=== PATIENT | male | born 1990 | race Caucasian/White ===

== ENCOUNTER 2021-04-17 06:11 | Inpatient (IN) | payer MEDICAID, SELFPAY ==
[~2021-04-17] VITALS: Ht 172.7 cm; Wt 98.9 kg
[2021-04-17 06:20] VITALS: BP 125/80
--- NOTE | 2021-04-17 06:20 | NUR ---
to bed ambulatory
--- NOTE | 2021-04-17 06:35 | NUR ---
RECEIVED PT IN BED 8 WITH C/O ABDOMINAL PAIN SINCE YESTERDAY. "I HAVE HAD A LUMP IN MY STOMACH FOR OVER A YEAR". DENIES VOMITING AND DIARRHEA
--- NOTE | 2021-04-17 06:36 | NUR ---
DR. PATRICK AT BEDSIDE FOR EXAM
[2021-04-17] MEDS ORDERED: MORPHINE SULFATE 4 MG/ML SYR IVP ONE ×2 (06:45→09:35)
[2021-04-17] MEDS ORDERED: ONDANSETRON 4 MG/2 ML VIAL IVP ONE (06:45)
--- NOTE | 2021-04-17 06:50 | NUR ---
SL ESTABLISHED. LABS DRAWN
--- NOTE | 2021-04-17 06:54 | NUR ---
TO CT VIA W/C
--- NOTE | 2021-04-17 07:00 | NUR ---
RETURNED FROM CT
--- NOTE | 2021-04-17 07:01 | NUR ---
PT IS MEDICAL ON-CALL PER ER ADMISSIONS TO POSSIBLY ADMIT PT
--- NOTE | 2021-04-17 07:23 | NUR ---
REPORT RECEIEVED FROM LEONA MARTINEZ FOR TRANSFER OF CARE
--- NOTE | 2021-04-17 07:25 | NUR ---
HALINA MELVIN COLLECTED AND WALKED OVER TO LAB BY POLICY DIRECTOR EMT
[2021-04-17 07:31] LABS: BASOPHILS # (AUTO) 0.1 K/uL (0.00-0.22); BASOPHILS % (AUTO) 0.8 % (0.0-2.0); EOSINOPHILS # (AUTO) 0.2 K/uL (0-0.4); EOSINOPHILS % (AUTO) 2.4 % (0.0-4.0); HEMATOCRIT 41.6 % (36-52); HEMOGLOBIN 14.3 g/dL (12.0-18.0); LYMPHOCYTES # (AUTO) 2.6 K/uL (2.0-11.5); LYMPHOCYTES % (AUTO) 34.2 % (20.5-51.1); MEAN CORPUSCULAR HEMOGLOBIN 29 pg (27-31); MEAN CORPUSCULAR HGB CONC 35 g/dL (33-37); MONOCYTES # (AUTO) 0.5 K/uL (0.8-1.0); MONOCYTES % (AUTO) 6.2 % (1.7-9.3); NEUTROPHILS # (AUTO) 4.3 K/uL (1.8-7.7); NEUTROPHILS % (AUTO) 56.4 % (42.2-75.2); PLATELET COUNT (AUTO) 228 K/uL (140-450); RED BLOOD CELL COUNT(AUTO) 5.01 MIL/uL (4.20-6.10); RED CELL DISTRIBUTION WIDTH 13.7 % (11.6-13.7); WHITE BLOOD COUNT (AUTO) 7.6 K/uL (4.8-10.8)
[2021-04-17 07:34] LABS: ALBUMIN 3.8 g/dL (3.4-5.0); ANION GAP 13.8 (8-16); CARBON DIOXIDE 26.3 mmol/L (21-32); CREATININE 0.7 mg/dL (0.6-1.3); POTASSIUM 4.1 mmol/L (3.5-5.1); TOTAL BILIRUBIN 0.2 mg/dL (0.0-1.0)
--- NOTE | 2021-04-17 07:34 | NUR ---
30Y MALE BIB SELF FROM HOME DUE TO ABDOMINAL PAIN X2 DAYS. PER PATIENT "HE HAS HAD THE HERNIA X1 YEAR AND X2 DAYS AGO HE STARTED TO EXPERINCE ABDOMINAL PAIN." PT ALSO STATED "THE HERNINA WAS SOFT, BUT NOW HAS BECOME RIGID." ABOUT GOLF SIZE LUMP NOTED ON PATIENT UPPER MID ABDOMEN. ABDOMEN IS TENDER TO TOUCH. PT +N/-V. PT DENIES ANY CHEST PAIN, SOB, FEVER/CHILLS. PT STATED HE NEEDS TO LAY FLAT TO PREVENT ANY PAIN. SKIN DRY AND INTACT. PT CURRENTLY A&OX4. PMH: HERNIA ALLERGIES: PENICILLINS
--- NOTE | 2021-04-17 08:13 | NUR ---
Patient appears to be resting comfortably in bed. Vital Signs within normal limits. Respirations even and unlabored.
--- NOTE | 2021-04-17 08:42 | NUR ---
pt ambulated to restroom
--- NOTE | 2021-04-17 08:44 | NUR ---
PT AMBULATED TO ROOM 8 FROM RESTROOM
[2021-04-17] MEDS ORDERED: ACET-10509 PO (08:59)
[2021-04-17] MEDS ORDERED: ZOLPIDEM 5 MG TAB PO PRN (09:40)
[2021-04-17] MEDS ORDERED: SODIUM PHOS / POTASSIUM PHOS 1 PKT PDR PO PRN (09:40)
[2021-04-17] MEDS ORDERED: HYDROcodone/APAP 5/325 MG 1 TAB TAB PO PRN ×2 (09:40→17:50)
[2021-04-17] MEDS ORDERED: LORazepam 2 MG/ML VIAL IM/IVP PRN (09:40)
[2021-04-17] MEDS ORDERED: ONDANSETRON 4 MG/2 ML VIAL IVP PRN ×2 (09:40→16:05)
[2021-04-17] MEDS ORDERED: DOCUSATE SODIUM 100 MG GELCAP PO PRN (09:40)
[2021-04-17] MEDS ORDERED: ACETAMINOPHEN 325 MG TAB PO PRN (09:40)
[2021-04-17] MEDS ORDERED: MORPHINE SULFATE 2 MG/ML SYR IVP PRN (09:40)
[2021-04-17] MEDS ORDERED: MAG SULF 2000 MG/WATER PREMIX 50 ML IV PRN (09:40)
[2021-04-17] MEDS ORDERED: POTASSIUM CHLORIDE 10 MEQ TABER PO PRN (09:40)
--- NOTE | 2021-04-17 09:58 | NUR ---
Patient will be admitted to care of DR. GAONA. Admited to TELE. Will go to room 107B. Belongings list completed. Report to LEONA RODGERS.
--- NOTE | 2021-04-17 10:00 | NUR ---
ADMITTED PT FROM ED VIA GURNEY. PT IS ALERT, A/O X 4. ON ROOM AIR. BREATHING SYMMETRICAL. DENIES PAIN AT THIS TIME. NOTED WITH GOLF SIZE HERNIA ON UPPER MID ABDOMEN, SKIN INTACT. WITH LAC 18G. CALL LIGHT WITHIN REACH. ALL SAFETY MEASURES IN PLACE. WILL CONTINUE TO MONITOR.
[2021-04-17] MEDS: DEXT 5% / NACL 0.45% 1,000 ML IV SCH ×2 (10:32→23:24)
[2021-04-17 12:00] VITALS: BP 105/60
--- NOTE | 2021-04-17 12:30 | NUR ---
PT ASLEEP IN BED. BREATHING SYMMETRICAL. FLACC 0. CALL LIGHT WITHIN REACH. ALL SAFETY MEASURES IN PLACE. WILL CONTINUE TO MONITOR.
[2021-04-17 14:43] LABS: APPEARANCE,URINE CLEAR (CLEAR); BILIRUBIN,URINE NEGATIVE (NEGATIVE); BLOOD, URINE NEGATIVE (NEGATIVE); COLOR,URINE YELLOW (YELLOW); LEUKOCYTE ESTERASE ,URINE NEGATIVE (NEGATIVE); NITRITE, URINE NEGATIVE (NEGATIVE); PH,URINE 5.5 (5.0-9.0); UGLUCOSE NEGATIVE (NEGATIVE)
--- NOTE | 2021-04-17 15:08 | NUR ---
PT AWAKE IN BED. RESPIRATION EVEN AND UNLABORED. C/O MILD PAIN ON MID ABDOMEN, REFUSES PAIN MEDICATION AT THIS TIME. ENCOURAGED PT TO CALL IF PAIN BECOMES UNBEARABLE. CALL LIGHT PLACED WITHIN REACH. WILL CONTINUE TO MONITOR.
[2021-04-17 15:13] LABS: BARBITURATE, URINE NEGATIVE ng/ml (NEG <=200)
[2021-04-17 15:14] LABS: BENZODIAZEPINE, URINE NEGATIVE ng/mL (NEG <=200); CANNABINOID, URINE NEGATIVE ng/mL (NEG <=50); COCAINE, URINE NEGATIVE ng/mL (NEG <=300); OPIATE, URINE POSITIVE ng/mL (NEG <=2000); PHENCYCLIDINE SCREEN,URINE NEGATIVE ng/mL (NEG <=25)
[2021-04-17] MEDS ORDERED: BUPIVACAINE-MPF/EPI 0.25% 10 ML VIAL INJ ONE (15:45)
[2021-04-17] MEDS ORDERED: ceFAZolin 1,000 MG VIAL ONE ×2 (15:45→16:41)
[2021-04-17] MEDS ORDERED: LIDOCAINE 1% 500 MG/50 ML VIAL ONE (15:45)
[2021-04-17] MEDS ORDERED: PROPOFOL 200 MG/20 ML VIAL IV ONE (15:53)
[2021-04-17] MEDS ORDERED: fentaNYL citrate 0.05 MG/ML VIAL ONE (15:54)
[2021-04-17] MEDS ORDERED: SUGAMMADEX SODIUM 200 MG/2 ML VIAL IV ONE (15:58)
[2021-04-17] MEDS ORDERED: LACTATED RINGERS 1,000 ML IV SCH (16:05)
[2021-04-17] MEDS ORDERED: HYDROmorphone 1 MG/ML AMP IVP PRN ×2 (16:05→17:50)
[2021-04-17] MEDS ORDERED: MEPERIDINE 25 MG/ML SYR IVP PRN (16:05)
--- NOTE | 2021-04-17 16:11 | NUR ---
PT TAKEN TO OR BY 2 DISTRIBUTION CLERK, PT IS ALERT/ORIENTED X4. BREATHING SYMMETRICAL. IN STABLE CONDITION.
[2021-04-17] MEDS ORDERED: ROCURONIUM 50 MG/5 ML VIAL IV ONE (16:30)
[2021-04-17] MEDS ORDERED: SEVOFLURANE 250 ML BTL INH ONE (16:30)
[2021-04-17] MEDS ORDERED: LIDOCAINE 2% 100 MG/5 ML SYR IVP ONE (16:30)
[2021-04-17] MEDS ORDERED: ONDANSETRON 4 MG/2 ML VIAL ONE (16:30)
[2021-04-17] MEDS ORDERED: DEXAMETHASONE 4 MG/ML VIAL ONE (16:30)
--- NOTE | 2021-04-17 18:10 | NUR ---
RECEIVED CALL FROM AFTER HOURS PHARMACY SPOKE WITH KRISTYN REGARDING DUPLICATE ORDERS FOR NORCO, COLACE AND DILAUDID. MESSAGED DR ULRICH, AWAITING ORDERS. Addendum: 04/17/21 at 1832 by Patricia Mckinnon RN ORDERS CLARIFIED AND RELAYED TO KRISTYN
--- NOTE | 2021-04-17 18:36 | NUR ---
PT BACK FROM OR, S/P HERNIA REPAIR. ABDOMINAL INCISION WITH DERMABOND, NO ACTIVE BLEEDING NOTED. PT RESPONSIVE. RESPIRATION EVEN AND UNLABORED. WILL CONTINUE TO MONITOR.
--- NOTE | 2021-04-17 18:59 | NUR ---
PROVIDED PT WITH IS. PT EDUCATED ON USE AND NEED FOR IS. PT VERBALIZED UNDERSTANDING AND DEMONSTRATED PROPER USE. FAMILY AT BEDSIDE. NO S/S OF DISTRESS. CALL LIGHT IN REACH. ALL SAFETY MEASURES IN PLACE
[2021-04-17 20:00] VITALS: BP 117/66
[2021-04-18 04:00] VITALS: BP 127/67
--- NOTE | 2021-04-18 06:56 | NUR ---
PATIENT HAS BEEN SCREENED AND CATEGORIZED LOW NUTRITION RISK. PATIENT WILL BE SEEN WITHIN 7 DAYS OF ADMISSION. 04/24/21 MARIE BELL MS, RDN
[2021-04-18 07:22] LABS: BASOPHILS % (AUTO) 0.1 % (0.0-2.0); HEMATOCRIT 41.7 % (36-52); HEMOGLOBIN 14.1 g/dL (12.0-18.0); LYMPHOCYTES # (AUTO) 0.9 K/uL (2.0-11.5); MEAN CORPUSCULAR HEMOGLOBIN 28 pg (27-31); MEAN CORPUSCULAR HGB CONC 34 g/dL (33-37); MEAN CORPUSCULAR VOLUME 82.7 fL (80-94); MONOCYTES # (AUTO) 0.5 K/uL (0.8-1.0); NEUTROPHILS # (AUTO) 9.9 K/uL (1.8-7.7); PLATELET COUNT (AUTO) 291 K/uL (140-450); RED BLOOD CELL COUNT(AUTO) 5.04 MIL/uL (4.20-6.10); RED CELL DISTRIBUTION WIDTH 13.6 % (11.6-13.7); WHITE BLOOD COUNT (AUTO) 11.3 K/uL (4.8-10.8)
[2021-04-18 07:26] LABS: ALBUMIN 3.5 g/dL (3.4-5.0); ANION GAP 13.2 (8-16); CARBON DIOXIDE 25.9 mmol/L (21-32); CREATININE 0.7 mg/dL (0.6-1.3); POTASSIUM 4.1 mmol/L (3.5-5.1); TOTAL BILIRUBIN 0.2 mg/dL (0.0-1.0)
--- NOTE | 2021-04-18 07:40 | NUR ---
RECEIVED REPORT FROM GEOTECHNICAL OPERATING ENGINEER NURSE, PT STABLE. NO S/S OF DISTRESS. PT CLEARED BY DR. ULRICH FOR DC TODAY. WILL NOTE DC INSTRUCTIONS PER SERG IN DC ORDER. CALL LIGHT IN REACH. ALL SAFETY MEASURES IN PLACE
[2021-04-18] MEDS ORDERED: DOCUSATE SODIUM 100 MG GELCAP PO SCH (09:00)
[2021-04-18] MEDS: DEXT 5% / NACL 0.45% 1,000 ML IV SCH (09:36)
[2021-04-18 09:54] LABS: NEUTROPHILS % (AUTO) 87.9 % (42.2-75.2)
[2021-04-18 12:00] VITALS: BP 136/82
--- NOTE | 2021-04-18 12:03 | NUR ---
PT SEEN BY DR. GAONA, NOTIFIED OF CLEARANCE FOR DC BY DR. ULRICH. PT DISCONNECTED FROM IV TO WALK HALLS. STEADY GAIT. PT TOLERATING WELL. NO S/S OF DISTRESS. ALL SAFETY MEASURES IN PLACE
[2021-04-18] MEDS ORDERED: ACET-8386 PO ×2 (12:45→17:51)
--- NOTE | 2021-04-18 13:35 | NUR ---
PT DISCHARGED HOME WITH FAMILY. WHEELED TO FRONT WITH ALL PERSONAL BELONGINGS. IV REMOVED, CANULA INTACT. ID BANDS REMOVED. NO S/S OF DISTRESS. ALL SAFETY MEASURES IN PLACE.
== END 2021-04-18 14:10 | disposition home or self-care (01) | DRG 227 ==
LOC: MED 06:11 → MTU 09:20
PROVIDERS: ADMIT Family Medicine; ATTEND Family Medicine
PROC: 0DBU0ZZ Excision of Omentum, Open Approach (ICD-10-PCS; 2021-04-17)
PROC: 0WUF0JZ Supplement Abdominal Wall with Synthetic Substitute, Open Approach (ICD-10-PCS; principal; 2021-04-17 16:00)
DX: K43.6 Other and unspecified ventral hernia with obstruction, without gangrene (principal); K82.0 Obstruction of gallbladder; K59.00 Constipation, unspecified; Z20.822 Contact with and (suspected) exposure to COVID-19; Z79.899 Other long term (current) drug therapy; Z88.0 Allergy status to penicillin
CPT/HCPCS: 36415; 71045; 80053; 80305; 83605; 83690; 83735; 85025; 87081; 93005; 96374; 96375; 96376; 99285; J0690; J1100; J2001; J2175; J2270; J2405; J2704; J3010; J3490; Q0092